=== PATIENT | female | born 1985 | race Caucasian/White ===

== ENCOUNTER 2021-12-12 21:01 | Inpatient (IN) | payer OTHER ==
[~2021-12-12] VITALS: Ht 154.9 cm; Wt 56.7 kg
--- NOTE | 2021-12-12 21:01 | NUR ---
Dr. Gonzales at bedside for MSE.
[2021-12-12] MEDS ORDERED: ONDANSETRON 4 MG/2 ML VIAL IV ONE (21:15)
[2021-12-12] MEDS ORDERED: IV NORMAL SALINE 1000 ML BAG IV ONE (21:15)
[2021-12-12] MEDS ORDERED: ONDANSETRON 4 MG/2 ML VIAL ONE (21:17)
[2021-12-12 21:21] LABS: HEMATOCRIT 35.9 % (31.2-41.9); MEAN CORPUSCULAR HEMOGLOBIN 29.9 uug (24.7-32.8); PLATELET COUNT (AUTO) 417 K/uL (179-408)
[2021-12-12 21:27] LABS: CARBON DIOXIDE 22 mmol/L (21-32); CHLORIDE 106 mmol/L (98-107); GLUCOSE 96 mg/dL (74-106); POTASSIUM 3.7 mmol/L (3.5-5.1); UREA NITROGEN, BLOOD 13 mg/dL (7-18)
[2021-12-12 21:35] LABS: ALANINE AMINOTRANSFERASE 38 U/L (14-59); ALKALINE PHOSPHATASE 47 U/L (50-136); ASPARTATE AMINOTRANSFERASE 20 U/L (15-37); BILIRUBIN,DIRECT 0.1 mg/dL (0.0-0.2); BILIRUBIN,TOTAL 0.3 mg/dL (0.2-1.0); TOTAL PROTEIN, SERUM 7.8 g/dL (6.4-8.2)
--- NOTE | 2021-12-13 01:14 | NUR ---
Received call back from [place], spoke with Darcy.
[2021-12-13] MEDS ORDERED: ASPIRIN 81 MG TAB.CHEW ONE (02:23)
--- NOTE | 2021-12-13 02:25 | NUR ---
Received call back from Darcy, authorization given to keep patient for admission.
--- NOTE | 2021-12-13 02:27 | NUR ---
Xray at bedside.
[2021-12-13] MEDS ORDERED: ASPIRIN 81 MG TAB.CHEW PO ONE (02:30)
--- NOTE | 2021-12-13 02:35 | NUR ---
Dr. Gonzales on panel call with Dr. erazo.
--- NOTE | 2021-12-13 02:40 | NUR ---
Pt provided urine sample, sent to lab.
--- NOTE | 2021-12-13 02:42 | NUR ---
Report given to Jazmín FLEMING Tele.
[2021-12-13] MEDS ORDERED: MAGNESIUM HYDROXIDE 30 ML LIQUID UDC PO PRN (02:45)
[2021-12-13] MEDS ORDERED: IV D5 1/2 NS 1000 ML 1,000 ML IV PRN (02:45)
[2021-12-13] MEDS ORDERED: GUAIFENESIN/CODEINE 5 ML LIQUID UDC PO ONE (02:45)
[2021-12-13] MEDS ORDERED: REMEDY ESSENTIAL ZINC PASTE 113 GM TP PRN (02:45)
[2021-12-13] MEDS ORDERED: GUAIFENESIN/CODEINE 5 ML LIQUID UDC ONE (02:48)
--- NOTE | 2021-12-13 03:00 | NUR ---
Admitted patient from ER under Telemetry, via wheelchair, no shortness of breath, fully awake, alert and oriented x4, no complaint of pain, Routine admission care done. Oriented fro the use of call light. Safety precautions provided. IVF D5 1/2 NS 1L started at 75 cc/hr as ordered. Instructed patient on NPO as ordered.
[2021-12-13 03:34] LABS: *AMPHETAMINE, URINE NEGATIVE (NEGATIVE); *CANNABINOID, URINE POSITIVE (NEGATIVE); *COCCAINE, URINE NEGATIVE (NEGATIVE); *OPIATE, URINE NEGATIVE (NEGATIVE); *PHENCYCLIDINE SCREEN,URINE NEGATIVE (NEGATIVE)
[2021-12-13] MEDS: ONDANSETRON 4 MG/2 ML VIAL IV PRN (04:59)
[2021-12-13 05:00] VITALS: BP 105/69
--- NOTE | 2021-12-13 06:46 | NUR ---
Slept intermittently. No complaint of pain, no shortness of breath, vitally stable. For continuity of care.
[2021-12-13] MEDS: PANTOPRAZOLE SODIUM 40 MG TABLET.DR PO SCH (07:35)
[2021-12-13] MEDS: ASPIRIN 81 MG TAB.CHEW PO SCH (09:57)
--- NOTE | 2021-12-13 10:29 | NUR ---
Patient seen and examined by Dr. Garcia and MD ordered patient can have regular diet.
[2021-12-13 12:00] VITALS: BP 110/62
[2021-12-13 16:00] VITALS: BP 112/65
--- NOTE | 2021-12-13 19:00 | NUR ---
Received patient on bed, awake, no shortness of breath. No complaint of pain. Safety precautions provided, Call light placed within reach.
[2021-12-13 20:00] VITALS: BP 92/41
--- NOTE | 2021-12-13 21:00 | NUR ---
Requested fro Tylenol 325mg 2 tabs, given.
[2021-12-13] MEDS: ACETAMINOPHEN 325 MG TABLET PO PRN (21:29)
[2021-12-14] VITALS: BP 112/69
[2021-12-14] MEDS: ACETAMINOPHEN 325 MG TABLET PO PRN ×2 (01:40→17:45)
[2021-12-14 04:00] VITALS: BP 116/60
[2021-12-14] MEDS: PANTOPRAZOLE SODIUM 40 MG TABLET.DR PO SCH (06:05)
--- NOTE | 2021-12-14 06:32 | NUR ---
Slept well within the shift, No complaint of pain at this time. No dizziness noted. Patient in fair condition.
[2021-12-14 07:32] LABS: HEMATOCRIT 33.5 % (31.2-41.9); MEAN CORPUSCULAR HEMOGLOBIN 29.9 uug (24.7-32.8); MEAN CORPUSCULAR VOLUME 87.6 fL (75.5-95.3); PLATELET COUNT (AUTO) 341 K/uL (179-408)
[2021-12-14] MEDS: ASPIRIN 81 MG TAB.CHEW PO SCH (09:10)
[2021-12-14 12:00] VITALS: BP 112/61
[2021-12-14 13:05] LABS: POTASSIUM 4.4 mmol/L (3.5-5.1)
[2021-12-14 13:07] LABS: CREATININE 0.8 mg/dL (0.6-1.3); MAGNESIUM 2.1 mg/dL (1.8-2.4); PHOSPHOROUS 4.6 mg/dL (2.5-4.9)
[2021-12-14 13:52] LABS: THYROID STIMULATING HORMONE 2.542 mIU/mL (0.358-3.740)
--- NOTE | 2021-12-14 14:09 | NUR ---
PATIENT SEEN WALKING IN THE [place] WAY WITH SLOW STEADY GAIT WITH FAIR ENDURANCE DENIES PAIN OR DISCOMFORTS AT THIS TIME.STILL AWAITING FOR WORD ON PROPOSED TRANSFER TO [facility] TODAY
[2021-12-14 16:00] VITALS: BP 114/64
[2021-12-14] MEDS: ONDANSETRON 4 MG/2 ML VIAL IV PRN (18:47)
--- NOTE | 2021-12-14 18:47 | NUR ---
PATIENT STATED HAS EMESIS OF PARTLY UNDIGESTED FOOD MEDICATED WITH ZOFRAN ORDERED WILL CONTINUE TO OBSERVE.
--- NOTE | 2021-12-14 19:30 | NUR ---
Received pt awake, alert and orientedx4. Pt in no acute distress. Iv intact. Pt on room air. Safety and comfort provided. Will continue to monitor.
[2021-12-14 20:00] VITALS: BP 100/58
[2021-12-14 20:10] LABS: *BILIRUBIN,URIN NEGATIVE (NEGATIVE); *BLOOD, URINE 1+ (NEGATIVE); *CLARITY,URINE CLEAR (CLEAR); *COLOR,URINE YELLOW (YELLOW); *KETONES,URINE NEGATIVE (NEGATIVE); *UROBILINOGEN,URINE 0.2 E.U./dl (NORMAL); LEUKOCYTE ESTERASE ,URINE NEGATIVE (NEGATIVE); NITRITE, URINE NEGATIVE (NEGATIVE); UGLUCOSE NEGATIVE (NEGATIVE)
[2021-12-14 22:45] VITALS: BP 123/53
--- NOTE | 2021-12-14 23:08 | NUR ---
at [address] [place]front director regarding pt complaining of change pain. Dr ordered EKG stat. Pt in no acute distress.
[2021-12-14 23:19] LABS: BACTERIA,URINE FEW /HPF (NONE SEEN); WBC,URINE 0-3 /HPF (0-3)
[2021-12-14 23:20] LABS: SQUAMOUS EPITHELIAL CELL,UR MODERATE /HPF (NONE SEEN)
--- NOTE | 2021-12-14 23:45 | NUR ---
EKG result sent to DR. Condon read and said its normal. No new orders.
--- NOTE | 2021-12-14 23:46 | NUR ---
Pt complaining of headache. ordered Motrin 400 mg q 8 .
[2021-12-15] MEDS ORDERED: IBUPROFEN 400 MG TABLET PO PRN
[2021-12-15 00:55] VITALS: BP 96/53
[2021-12-15 04:00] VITALS: BP 103/62
--- NOTE | 2021-12-15 06:07 | NUR ---
Pt slept intermittently. Pt in no acute distress. Iv intact. Pt is afebrile. Pt medication given and pt tolerated it well.Pt on sinus rhythm. Safety and comfort provided. Will endorse to incoming nurse for continuity of care.
[2021-12-15] MEDS: PANTOPRAZOLE SODIUM 40 MG TABLET.DR PO SCH (06:36)
--- NOTE | 2021-12-15 08:00 | NUR ---
patient sleeping comfortably in bed. In no acute distress. AAO x4, Able to make needs known. Denies any further episodes of syncope since admission. Patient is NSR on telemetry. No complain of SOB or chest pain. All needs attended, call light within reach.
[2021-12-15] MEDS: ASPIRIN 81 MG TAB.CHEW PO SCH (08:45)
[2021-12-15 11:15] VITALS: BP 111/66
--- NOTE | 2021-12-15 11:30 | NUR ---
Seen by Dr. Boyle, Cardio, patient is cleared through cardio. Seen by SRIKANTH Maier, patient plan is to DC.
[2021-12-15 15:14] VITALS: BP 96/58
--- NOTE | 2021-12-15 15:56 | NUR ---
Patient discharged home via private car. Brother at bedside and will transport patient. patient discharge instructions provided and understood, teaching material provided. All belongings sent home with patient. IV to left FA removed without complications.
== END 2021-12-15 16:27 | disposition home or self-care (01) | DRG 775 ==
LOC: ER 21:04 → TELE3 12-13 02:46
PROVIDERS: ADMIT Student in an Organized Health Care Education/Training Program; ATTEND Internal Medicine
DX: F10.129 Alcohol abuse with intoxication, unspecified (principal); G90.8 Other disorders of autonomic nervous system; Y90.7 Blood alcohol level of 200-239 mg/100 ml; Z86.79 Personal history of other diseases of the circulatory system; Z82.49 Family history of ischemic heart disease and other diseases of the circulatory system; Z20.822 Contact with and (suspected) exposure to COVID-19; Z83.3 Family history of diabetes mellitus; F12.90 Cannabis use, unspecified, uncomplicated
CPT/HCPCS: 36415; 71045; 83735; 84100; 84443; 84484; 85025; 93005; 93307; A4663; G0378; G0480; J2405; J7040

== ENCOUNTER 2022-07-22 21:58 | Emergency (ER) | payer OTHER ==
[~2022-07-22] VITALS: Ht 154.9 cm; Wt 65.8 kg
[2022-07-22] MEDS ORDERED: ASPIRIN 81 MG TAB.CHEW PO ONE (22:45)
[2022-07-22] MEDS ORDERED: ONDANSETRON ODT 4 MG TAB.RAPDIS SL ONE (23:00)
[2022-07-22] MEDS ORDERED: HYDROCODONE/APAP 5-325MG TABLET PO ONE (23:00)
[2022-07-22] MEDS ORDERED: GUAIFENESIN/CODEINE 5 ML LIQUID UDC PO ONE (23:00)
[2022-07-22] MEDS ORDERED: GUAIFENESIN/CODEINE 5 ML LIQUID UDC ONE (23:15)
[2022-07-22] MEDS ORDERED: ASPIRIN 81 MG TAB.CHEW ONE (23:15)
[2022-07-22] MEDS ORDERED: ONDANSETRON ODT 4 MG TAB.RAPDIS ONE (23:15)
[2022-07-22] MEDS ORDERED: HYDROCODONE/APAP 5-325MG TABLET ONE (23:16)
[2022-07-23 00:05] LABS: CARBON DIOXIDE 29 mmol/L (21-32); CHLORIDE 105 mmol/L (98-107); CREATININE 0.8 mg/dL (0.6-1.3); GLUCOSE 90 mg/dL (74-106); POTASSIUM 4.3 mmol/L (3.5-5.1); UREA NITROGEN, BLOOD 8 mg/dL (7-18)
[2022-07-23 00:07] LABS: HEMATOCRIT 35.3 % (31.2-41.9); MEAN CORPUSCULAR HEMOGLOBIN 29.1 uug (24.7-32.8); MEAN CORPUSCULAR VOLUME 85.6 fL (75.5-95.3); PLATELET COUNT (AUTO) 418 K/uL (179-408)
[2022-07-23 00:29] LABS: ALANINE AMINOTRANSFERASE 43 U/L (14-59); ALKALINE PHOSPHATASE 61 U/L (50-136); ASPARTATE AMINOTRANSFERASE 31 U/L (15-37); BILIRUBIN,DIRECT 0.1 mg/dL (0.0-0.2); BILIRUBIN,TOTAL 0.3 mg/dL (0.2-1.0); TOTAL PROTEIN, SERUM 7.9 g/dL (6.4-8.2)
[2022-07-23] MEDS ORDERED: CODE10LI PO (01:05)
[2022-07-23] MEDS ORDERED: GUAIFENESIN/CODEINE 5 ML LIQUID UDC ONE (01:50)
--- NOTE | 2022-07-23 01:59 | NUR ---
Patient discharged to home in stable condition. Written and verbal after care instructions given. Patient verbalizes understanding of instructions. Stressed follow up or return to ER for worsening s/s.
[2022-07-23 02:00] VITALS: BP 110/71
[2022-07-23] MEDS ORDERED: GUAIFENESIN/CODEINE 5 ML LIQUID UDC PO ONE ×2 (02:00)
== END 2022-07-23 02:01 | disposition home or self-care (01) ==
LOC: ER 21:58
DX: R07.9 Chest pain, unspecified (principal); R05.9 Cough, unspecified; Z20.822 Contact with and (suspected) exposure to COVID-19; Z88.0 Allergy status to penicillin; Z95.0 Presence of cardiac pacemaker
CPT/HCPCS: 36415; 71045; 84484; 85025; 87400; 93005; A4663; Q0162